=== PATIENT | female | born 1930 | race Two or more races ===

== ENCOUNTER → 2017-01-26 | Outpatient (CLI) | payer OTHER, MEDICARE | LOC: BMCIMAGING 16:18 | PROVIDERS: ATTEND Internal Medicine | DX: R05 Cough (principal); R50.9 Fever, unspecified ==

== ENCOUNTER → 2017-03-10 | Outpatient (CLI) | payer OTHER, MEDICARE | LOC: BMCIMAGING 09:00 | PROVIDERS: ATTEND Internal Medicine | DX: R05 Cough (principal) ==

== ENCOUNTER → 2017-06-22 | Outpatient (CLI) | payer OTHER, MEDICARE | LOC: BMCIMAGING 10:18 | PROVIDERS: ATTEND Internal Medicine | DX: R92.8 Other abnormal and inconclusive findings on diagnostic imaging of breast (principal); Z96.9 Presence of functional implant, unspecified; Z90.13 Acquired absence of bilateral breasts and nipples | CPT/HCPCS: 76641; G0204 ==

== ENCOUNTER 2017-09-17 07:25 | Observation (INO) | payer OTHER, MEDICARE ==
[2017-09-17] MEDS ORDERED: NS 1,000 ML IV ONE (08:17)
--- NOTE | 2017-09-17 08:21 | EDPHY ---
H & P Stated Complaint: dizziness and vometing Time Seen by Provider: 09/17/17 07:39 - Personal History Current Tetanus/Diphtheria Vaccine: Yes Current Tetanus Diphtheria and Acellular Pertussis (TDAP): Yes - Medical/Surgical History Hx Asthma: No Hx Chronic Respiratory Disease: No Hx Diabetes: No Hx Cardiac Disease: No Hx Renal Disease: Yes Hx Cirrhosis: No Hx Alcoholism: No Hx HIV/AIDS: No Hx Splenectomy or Spleen Trauma: No Other PMH: low blood pressure, anxiety, hypothyroidism, LTHA, anemia, insomnia, GI Bleed, breast ca, double mastectomy, anemia, GERD, memory loss, imcomtinenz - Social History Smoking Status: Never smoked Constitutional: Initial Vital Signs Temperature (C) 36.4 C 09/17/17 07:25 Heart Rate 65 09/17/17 07:25 Respiratory Rate 16 09/17/17 07:25 Blood Pressure 158/80 H 09/17/17 07:25 O2 Sat (%) 95 09/17/17 07:25 O2 Delivery Mode Room Air Allergies/Adverse Reactions: codeine Allergy (Verified 08/21/15 13:53) morphine Allergy (Verified 08/21/15 13:53) Home Medications: Medication Instructions Recorded Herbals/Supplements -Info Only 1 ea PO DAILY 08/07/15 Lansoprazole [Prevacid] 30 mg PO Q12 PRN 08/07/15 Levothyroxine [Synthroid] 25 mcg PO DAILY06 08/07/15 Multivitamins [Tab-A-Lynne] 1 each PO DAILY 08/07/15 Ferrous Sulfate 09/17/17 Medical Decision Making - Diagnostics Imaging Results: Imaging Impressions Abdomen CT 09/17/17 08:18 Impression: 1. Right renal obstruction secondary to 2 adjacent proximal ureteral stones. The right urothelium is thickened, consistent with either chronic inflammation or infection. The right kidney is moderately atrophic. 2. Left pelvic Paget's disease. 3. Large hiatal hernia. 4. Colonic diverticulosis. Results called and discussed with Kailash Almonte MD, at 09/17/2017 9:24 General information for patients regarding this examination can be found at [email or web address]. If you have questions or comments about this report, please contact me at [phone] (hospital) or [phone] (cell). ED Course/Re-evaluation: CHIEF COMPLAINT: Dizziness and vomiting HISTORY OF PRESENT ILLNESS: 87-year-old female who lives in her own apartment. She spoke to her son this morning after she had severe dizziness and was afraid to get up out of the chair. She also vomited. Although she has short- term memory loss she believes the dizziness came 1st and then she vomited. She denies any systemic illness like fevers or chills. She denies any diarrhea. She denies any black tarry stools. She did say that the vomit was a very small amount of black liquid she did drink black coffee and had her vitamins including iron tablet this morning. Denies any other symptoms REVIEW OF SYSTEMS: A 10 point review of systems was performed and is negative with the exception of the elements mentioned in the history of present illness. PHYSICAL EXAM: HR, BP, O2 Sat, RR. Temp noted General Appearance: Alert, well hydrated, appropriate, and non-toxic appearing. Head: Atraumatic without scalp tenderness or obvious injury Eyes: Pupils equal, round, reactive to light and accommodation, EOMI, no trauma , no injection. Ears: Clear bilaterally, no perforation, normal landmarks Nose: Atraumatic, no rhinorrhea, clear. Throat: There is no erythema or exudates, no lesions, normal tonsils, mucus membranes moist. Neck: Supple, 2+ carotid upstroke, nontender, no lymphadenopathy. Respiratory: No retractions, no distress, no wheezes, and no accessory muscle use. Lungs are clear to auscultation bilaterally. Cardiovascular: Regular rate and rhythm, no murmurs, rubs, or gallops. Bilateral carotid, radial, dorsalis pedis, and posterior tibial pulses intact. Good capillary refill all extremities. Gastrointestinal: Abdomen is soft, tenderness in the epigastric area, non- distended, no masses, no rebound, no guarding, no peritoneal signs. Musculoskeletal: Normal active ROM of all extremities, atraumatic. Neurological: Alert, appropriate, and interactive. The patient has normal DTRs and non-focal cranial nerves, motor, sensory, and cerebellar exam. Skin: No rashes, good turgor, no nodules on palpation. Past medical history: Noncontributory no prior history of obstruction or gastrointestinal bleeding Past surgical history: Noncontributory Family history: Noncontributory Social history: , lives at home alone, does not abuse tobacco drugs or alcohol DIAGNOSTICS/PROCEDURES/CRITICAL CARE TIME: Study: CT of the abdomen and pelvis with IV contrast Indication: abdominal pain with nausea and vomiting Results: CT scan of the abdomen and pelvis was obtained. The results of the study are significant right pyelonephritis due to to 8 mm adjacent proximal kidney stones. The study was read by the radiologist, Dr. Chris Willson. I viewed the images myself on the PACS system. DIFFERENTIAL DIAGNOSIS: The differential diagnosis for the patient's abdominal pain included but was not limited to ovarian cyst, pelvic inflammatory disease, ovarian torsion, urinary tract infection, ectopic , cholecystitis, and appendicitis. MEDICAL DECISION MAKING: This patient is in no distress. She has excellent vital signs. She has a fairly tender abdominal exam mostly in the epigastric area when I palpate. She states she feels almost completely better and is no longer dizzy and is no longer nauseated. I am somewhat concerned about her history since she has significant short-term memory loss and her son who is in the room has to help her. We will perform laboratory studies and CT scan. This patient has 2 large proximal kidney stones obstructing right kidney which is most likely the cause for her pain. Her renal function is normal she has not have a white blood cell count and she is not febrile. Urinalysis is pending. The urinalysis shows significant red cells and significant white cells with leukocyte esterase and nitrates. This patient has an obstructive uropathy secondary to to proximal kidney stones and a pyelonephritis. I have given her 1 g of ceftriaxone. She is not septic. I have paged hospitalist and Neurology. Most likely this patient will need either a stent or nephrostomy tube and admission. I spoke with Urology. They are in agreement that the nephrostomy tube is indicated in this patient. We have called interventional Radiology to get that tube placed and I am admitting the patient to the hospitalist. - Data Points Laboratory Results: Laboratory Results 09/17/17 07:30 09/17/17 07:30 09/17/17 09/17/17 09/17/17 09:07 07:30 07:30 WBC 4.80 10^3/uL 10^3/uL (3.80-9.50) RBC 4.49 10^6/uL 10^6/uL (4.18-5.33) Hgb 14.2 g/dL g/dL (12.6-16.3) Hct 42.6 % % (38.0-47.0) MCV 94.9 fL fL (81.5-99.8) MCH 31.6 pg pg (27.9-34.1) MCHC 33.3 g/dL g/dL (32.4-36.7) RDW 13.8 % % (11.5-15.2) Plt Count 193 10^3/uL 10^3/uL (150-400) MPV 11.0 fL fL (8.7-11.7) Neut % (Auto) 73.3 % % (39.3-74.2) Lymph % (Auto) 14.4 % L % (15.0-45.0) [place] % (Auto) 7.3 % % (4.5-13.0) Eos % (Auto) 3.8 % % (0.6-7.6) Baso % (Auto) 0.8 % % (0.3-1.7) Nucleat RBC Rel Count 0.0 % % (0.0-0.2) Absolute Neuts (auto) 3.52 10^3/uL 10^3/uL (1.70-6.50) Absolute Lymphs (auto) 0.69 10^3/uL L 10^3/uL (1.00-3.00) Absolute Monos (auto) 0.35 10^3/uL 10^3/uL (0.30-0.80) Absolute Eos (auto) 0.18 10^3/uL 10^3/uL (0.03-0.40) Absolute Basos (auto) 0.04 10^3/uL 10^3/uL (0.02-0.10) Absolute Nucleated RBC 0.00 10^3/uL 10^3/uL (0-0.01) Immature Gran % 0.4 % % (0.0-1.1) Immature Gran # 0.02 10^3/uL 10^3/uL (0.00-0.10) Sodium 139 mEq/L mEq/L (134-144) Potassium 4.3 mEq/L mEq/L (3.5-5.2) Chloride 102 mEq/L mEq/L (97-110) Carbon Dioxide 26 mEq/l mEq/l (22-31) Anion Gap 11 mEq/L mEq/L (8-16) BUN 24 mg/dL H mg/dL (7-23) Creatinine 0.9 mg/dL mg/dL (0.6-1.0) Estimated GFR 59 Glucose 112 mg/dL H mg/dL (70-100) Calcium 9.4 mg/dL mg/dL (8.5-10.4) Total Bilirubin 0.4 mg/dL mg/dL (0.1-1.4) Conjugated Bilirubin 0.1 mg/dL mg/dL (0.0-0.5) Unconjugated Bilirubin 0.3 mg/dL mg/dL (0.0-1.1) AST 20 IU/L IU/L (14-46) ALT 33 IU/L IU/L (9-52) Alkaline Phosphatase 113 IU/L IU/L (38-126) Total Protein 6.5 g/dL g/dL (6.3-8.2) Albumin 4.0 g/dL g/dL (3.5-5.0) Lipase 97 IU/L IU/L (23-300) Urine Color YELLOW Urine Appearance MODERATELY TURBID Urine pH 5.0 (5.0-7.5) Ur Specific [place] 1.027 (1.002-1.030) Urine Protein NEGATIVE (NEGATIVE) Urine Ketones NEGATIVE (NEGATIVE) Urine Blood 2+ H (NEGATIVE) Urine Nitrate POSITIVE H (NEGATIVE) Urine Bilirubin NEGATIVE (NEGATIVE) Urine Urobilinogen NEGATIVE EU EU (0.2-1.0) Ur Leukocyte Esterase 3+ H (NEGATIVE) Urine RBC 50-182 /hpf H /hpf (0-3) Urine WBC 50-182 /hpf H /hpf (0-3) Ur Epithelial Cells TRACE /lpf /lpf (NONE-1+) Urine Bacteria 4+ /hpf H /hpf (NONE SEEN) Urine Mucus TRACE /lpf /lpf (NONE-1+) Urine Glucose NEGATIVE (NEGATIVE) Medications Given: Ceftriaxone Sodium/Dextrose (Rocephin 1 Gm (Premix)) 50 mls @ 100 mls/hr IV EDNOW ONE PRN Reason: Protocol Stop: 09/17/17 10:04 Last Admin: 09/17/17 09:41 Dose: 50 mls Discontinued Medications Sodium Chloride (Ns) 1,000 mls @ 0 mls/hr IV EDNOW ONE; Wide Open PRN Reason: Protocol Stop: 09/17/17 08:18 Last Admin: 09/17/17 08:34 Dose: 1,000 mls Departure - Departure Disposition: [facility] Inpatient Acute Clinical Impression: Acute pyelonephritis, Renal colic on right side, Obstructive uropathy Condition: Fair Referrals: Chaytio Torres MD [Primary Care Provider] - As per Instructions
[2017-09-17 08:22] LABS: % IMMATURE GRANULYOCYTES 0.4 % (0.0-1.1); ABSOLUTE IMMATURE GRANULOCYTES 0.02 10^3/uL (0.00-0.10); ADD DIFF? NO; ADD MORPH? NO; ADD SCAN? NO; ATYPICAL LYMPHOCYTE FLAG 0 (0-99); FRAGMENT RBC FLAG 0 (0-99); HEMATOCRIT 42.6 % (38.0-47.0); HEMOGLOBIN 14.2 g/dL (12.6-16.3); LEFT SHIFT FLG 0 (0-99); LIPEMIA HEMOLYSIS FLAG 80 (0-99); MEAN CELL HEMOGLOBIN 31.6 pg (27.9-34.1); MEAN CELL HEMOGLOBIN CONCENTR. 33.3 g/dL (32.4-36.7); MEAN CELL VOLUME 94.9 fL (81.5-99.8); PLATELET CLUMPS FLAG 10 (0-99); PLATELET COUNT 193 10^3/uL (150-400); RED BLOOD CELL COUNT 4.49 10^6/uL (4.18-5.33); RED CELL DISTRIBUTION WIDTH 13.8 % (11.5-15.2)
[2017-09-17] MEDS ORDERED: IOPAMIDOL (ISOVUE-300) 100 ML BTL ONE (08:26)
[2017-09-17 08:30] LABS: ALANINE AMINOTRANSFERASE 33 IU/L (9-52); ALKALINE PHOSPHATASE 113 IU/L (38-126); ASPARTATE AMINOTRANSFERASE 20 IU/L (14-46); BILIRUBIN,TOTAL 0.4 mg/dL (0.1-1.4); BILIRUBIN-CONJUGATED 0.1 mg/dL (0.0-0.5); BILIRUBIN-UNCONJUGATED 0.3 mg/dL (0.0-1.1); CALCIUM 9.4 mg/dL (8.5-10.4); CARBON DIOXIDE 26 mEq/l (22-31); CHLORIDE 102 mEq/L (97-110); CREATININE 0.9 mg/dL (0.6-1.0); GLOMERULAR FILTRATION RATE 59; GLUCOSE 112 mg/dL (70-100); SODIUM 139 mEq/L (134-144); TOTAL PROTEIN 6.5 g/dL (6.3-8.2)
[2017-09-17 08:35] LABS: ANION GAP 11 mEq/L (8-16); POTASSIUM 4.3 mEq/L (3.5-5.2)
[2017-09-17 09:31] LABS: COLOR YELLOW; LEUKOCYTE ESTERASE,URINE 3+ (NEGATIVE); NITRITE,URINE POSITIVE (NEGATIVE)
[2017-09-17 09:34] LABS: BACTERIA 4+ /hpf (NONE SEEN); MUCUS TRACE /lpf (NONE-1+); RBC,URINE 50-182 /hpf (0-3); WBC,URINE 50-182 /hpf (0-3)
--- NOTE | 2017-09-17 10:52 | ASMTCMCOM ---
CM Note CM Note Notes: Patient admitted for acute pyelonephritis, ureter stones and possible infection. Patient only has her right kidney and she will need a nephrostomy tube, to be placed by IR. Patient lives alone in independent living at [facility]. Patient's son, Tye, is at bedside and lives locally. Patient has short term memory loss, not sure if officially diagnosed with dementia or not. Exact DC needs unknown at this time. Per chart review, patient had been to [facility] in 2014. Patient's PCP is Dr. Chayito Torres. CM to follow. Date Signed: 09/17/2017 10:51 AM Electronically Signed By:Liss Luther RN
--- NOTE | 2017-09-17 10:53 | ASMTCASEMG ---
Living Arrangements What is your living Answers: Alone arrangement? Who do you live with? Type Of Residence What kind of residence do Answers: Chcf you live in? Type of Residence Facility Name Notes: [facility] Case Management Evaluation Functional: ADL / IADL Answers: Cognitive Deficiency Performance Deficits Due to: Other Notes: Short term memory loss Date Signed: 09/17/2017 10:53 AM Electronically Signed By:Liss Luther RN
[2017-09-17] MEDS ORDERED: ONDANSETRON 4 MG/2 ML VIAL IVP PRN (11:23)
[2017-09-17] MEDS ORDERED: ONDANSETRON DISINTEGRATING 4 MG TAB PO PRN (11:23)
[2017-09-17] MEDS ORDERED: ACETAMINOPHEN 325 MG TAB PO PRN (11:23)
[2017-09-17] MEDS ORDERED: PROTAMINE SULFATE 50 MG/5 ML VIAL IVP PRN (11:39)
[2017-09-17] MEDS ORDERED: GLUCAGON HCL 1 MG VIAL IVP PRN (11:39)
[2017-09-17] MEDS ORDERED: NALOXONE HCL 0.4 MG/ML INJ IVP PRN (11:39)
[2017-09-17] MEDS ORDERED: HEPARIN 10,000 UNIT/10 ML MDV IVP PRN (11:39)
[2017-09-17] MEDS ORDERED: MEPERIDINE 25 MG/ML SYR IVP PRN (11:39)
[2017-09-17] MEDS ORDERED: ALTEPLASE 2 MG VIAL IVP PRN (11:39)
[2017-09-17] MEDS ORDERED: MIDAZOLAM 2 MG/2 ML VIAL IVP PRN (11:39)
[2017-09-17] MEDS ORDERED: FLUMAZENIL 0.5 MG/5 ML MDV IVP PRN (11:39)
[2017-09-17] MEDS ORDERED: fentaNYL 100 MCG/2 ML INJ IVP PRN (11:39)
[2017-09-17] MEDS ORDERED: NS 1,000 ML IV SCH (11:45)
[2017-09-17] MEDS ORDERED: DOXEPIN HCL 10 MG CAP PO PRN (12:10)
--- NOTE | 2017-09-17 14:11 | GHP ---
[f rep st] HISTORY AND PHYSICAL DATE OF ADMISSION: 09/17/2017 CHIEF COMPLAINT: Vomiting with dizziness and lightheadedness. HISTORY OF PRESENT ILLNESS: The patient is an 87-year-old female, who lives at the [facility]. She presented to the emergency room this morning after complaints of vomiting with meron e dizziness. She denies any other complaints. She said that her vomiting was a small amount of nettie k liquid that looked like coffee grounds. She denies any chest pain, shortness of breath or dyspnea. She denies any changes in vision. She denies any changes in bowel movements, however, has difficul ty recalling this information. She denies any current pain or other specific complaints. REVIEW OF SYSTEMS: A comprehensive 10-point Review of Systems is negative other than noted in the HP I, to the best of my ability to obtain information from the patient. PAST MEDICAL HISTORY: 1. Gastrointestinal bleed. 2. Breast cancer. 3. One functioning kidney secondary to significant kidney stones. 4. Hypothyroidism. PAST SURGICAL HISTORY: Bilateral mastectomy. MEDICATIONS: 1. Prevacid. 2. Multivitamin. 3. Synthroid. 4. Doxepin. ALLERGIES: Codeine and morphine. SOCIAL HISTORY: The patient resides at the [facility] in the [facility]. She was previously [facility]. Her son resides in the area. She does not smoke tobacco. She does drink 1 to 2 glasses of wine daily. FAMILY HISTORY: Positive for cancer on her mother's side and heart disease on her father's side. PHYSICAL EXAM: GENERAL: The patient is alert, oriented to person, place. VITAL SIGNS: Afebrile at 36.3, pulse is 68, respiratory rate is 18, blood pressure is 168/78, she is saturating 97% on room a ir. GENERAL: She is a very pleasant, elderly woman in no acute distress. HEENT: Pupils are equal, round, reactive to light. Atraumatic. Mucosal membranes are moist. NECK: Supple with no adenopat hy noted. CARDIOVASCULAR: Regular rate and rhythm. Systolic murmur identified. RESPIRATORY: Lung s are clear to auscultation bilaterally. No rhonchi or wheezes noted. GASTROINTESTINAL/ABDOMEN: Shay wel sounds are positive. Soft, nontender. There is no guarding or rigidity appreciated. EXTREMITIE S: Within normal limits. There is no clubbing or cyanosis noted. She does have venous stasis angelo es bilaterally. MUSCULOSKELETAL: There is no joint or muscle tenderness identified. SKIN: Without rashes or lesions. LABORATORY EVALUATION: CBC within normal limits as well as her metabolic panel. Urine is notable fo r likely infectious process. RADIOLOGICAL STUDIES: CT of the abdomen notes right renal obstruction secondary to ureteral stones a s well as thickening representing a chronic inflammation or chronic infection and moderately atrophic kidney. ASSESSMENT AND PLAN: This is an 87-year-old female who presents with complaints of dark emesis, expe riencing lightheadedness and weakness. This case was discussed with Dr. Kailash Almonte as well as Dr. Won Gray of Urology and Dr. Kerrie Robert of Interventional Radiology. 1. Right kidney abnormality with hydronephrosis. It appears that this is chronic in nature per the reading of the Radiologist as well as evaluation from Urology and Interventional Radiology. No inter vention is warranted at this time. If the patient's symptoms were to change, we could consider placi ng a nephrostomy tube with aggressive treatment for her kidney stones. I have reviewed this plan wit h the patient's son as well as the patient. They are both in agreement with this plan. 2. Pyuria, will treat the patient for urinary tract infection. She did receive a dose of Rocephin i n the emergency room. Urine culture has been ordered, will follow her culture with appropriate treat ment. 3. Emesis. The patient has had no further bouts of this since this morning. We will continue to wa tch her. She is not presenting with anemia or other complaints. She denies any current nausea or ab dominal pain. She will be placed on a regular diet with further intervention identified if needed. 4. History of hypothyroidism, will continue her previously prescribed replacement. 5. Deep venous thrombosis prophylaxis. The patient has been placed on Lovenox. CODE STATUS: 1. The patient is a full code. Her son is at the bedside to assist with this decision-making. 2. The patient will be admitted to observation status. This will be adjusted based on her hospital course. /[id number]/MODL
[2017-09-18 00:41] VITALS: RESP 16
[2017-09-18 07:19] VITALS: BP 139/72; PULSE 67; TEMP 98.1; O2SAT 94
[2017-09-18 08:50] LABS: % IMMATURE GRANULYOCYTES 0.7 % (0.0-1.1); ABSOLUTE IMMATURE GRANULOCYTES 0.03 10^3/uL (0.00-0.10); ADD DIFF? NO; ADD MORPH? NO; ADD SCAN? NO; ATYPICAL LYMPHOCYTE FLAG 0 (0-99); FRAGMENT RBC FLAG 0 (0-99); HEMATOCRIT 41.9 % (38.0-47.0); HEMOGLOBIN 13.9 g/dL (12.6-16.3); LEFT SHIFT FLG 0 (0-99); LIPEMIA HEMOLYSIS FLAG 80 (0-99); MEAN CELL HEMOGLOBIN 31.4 pg (27.9-34.1); MEAN CELL HEMOGLOBIN CONCENTR. 33.2 g/dL (32.4-36.7); MEAN CELL VOLUME 94.6 fL (81.5-99.8); MEAN PLATELET VOLUME 10.5 fL (8.7-11.7); PLATELET CLUMPS FLAG 0 (0-99); PLATELET COUNT 176 10^3/uL (150-400); RED BLOOD CELL COUNT 4.43 10^6/uL (4.18-5.33); RED CELL DISTRIBUTION WIDTH 13.7 % (11.5-15.2)
[2017-09-18] MEDS ORDERED: PANTOPRAZOLE SODIUM 40 MG TAB PO SCH (09:00)
[2017-09-18] MEDS ORDERED: LANSOPRAZOLE 30 MG PO SCH (09:00)
[2017-09-18] MEDS ORDERED: ENOXAPARIN 30 MG/0.3 ML SYR SC SCH (09:00)
[2017-09-18] MEDS ORDERED: LEVOTHYROXINE 88 MCG TAB PO SCH (09:00)
[2017-09-18] MEDS ORDERED: MULTIVITAMINS 1 EACH TAB PO SCH (09:00)
[2017-09-18 09:17] LABS: ANION GAP 7 mEq/L (8-16); CALCIUM 9.2 mg/dL (8.5-10.4); CARBON DIOXIDE 30 mEq/l (22-31); CHLORIDE 102 mEq/L (97-110); CREATININE 0.8 mg/dL (0.6-1.0); GLOMERULAR FILTRATION RATE > 60; GLUCOSE 92 mg/dL (70-100); POTASSIUM 3.9 mEq/L (3.5-5.2); SODIUM 139 mEq/L (134-144)
--- NOTE | 2017-09-18 10:07 | PDDCSUM ---
Discharge Summary Discharge Summary: This is a 87 yo female with hx of non functioning right kidney who was admitted for right abd/right side pain, N/V with the possibility of vomiting coffee ground emesis. Labs were normal including Hgb and Cr. She was started on Rocephin in the E.D and this was continued. CT showed stones in the right kidney , but also showed chronic scarring. Initially the plan was to place a nephrostomy tube but upon further evaluation by IR, Urology, and the admitting hospitalist, a decision not perform nephrostomy was made as the CT findings were likely chronic and she did not have any clinical e/o of renal etiology for her sx's. No Leukocytosis or fever. UA was c/w likely UTI, although she does not have dysuria or increased frequency Overnight she did well. NO further N/N, her right sided abd/side pain have resolved. She is asking of discharge. She has already received 2 doses of Rocephin. Given improvement of her symptoms , I have chosen to complete a 7 day course of abx with Omnicef. she will f/u with her PCP next week #Pyuria vs complicated UTI with atypical presentation #Chronic right renal abnormalities and non functioning kidney #N/V, resolved #?coffee ground emesis, Hgb stable and unchanged overnight. NO abd pain. I did not start a PPI Exam: VSS NAD AAOX3 RRR CTA B S/NT/ND NO CVA TENDERNESS NO LE EDEMA MEDS: SEE MED REC TOTAL TIME SPENT ON DISCHARGE IS 35 MINUTES
--- NOTE | 2017-09-18 14:46 | ASDISCHSUM ---
Discharge Information Plan Status:Home with No Needs Medically Cleared to Leave: Discharge Date:09/18/2017 11:48 AM CM D/C Disposition:Home, Routine, Self-Care ADT D/C Disposition:Home, Routine, Self-Care Projected Discharge Date:09/18/2017 11:48 AM Transportation at D/C:Family Discharge Delay Reason: Follow-Up Date:09/18/2017 11:48 AM Discharge Slot: Final Diagnosis: Placement Information Patient Contact Information Contact Name:CHAITANYA Relationship:Son Address:[address] City:[place] Alternate Phone: [facility]/Zip Code:[place] [address] Email: Financial Information Financial Class: Primary Plan Desc:MEDICARE OUTPATIENT Primary Plan Number:[id number] Secondary Plan Desc:[employer]/MDR SUPPLEMENT Secondary Plan Number:[id number] Assessment Information LACE LACE Acuity / Level of Care Answers: Was the patient admitted to hospital via the emergency department? Yes: Comorbidities - select Answers: Mild liver or renal all that apply disease Dementia Emergency dept visits in Answers: 1 last 6 months Score: 9 Date Signed: 09/17/2017 10:46 AM Electronically Signed By:Liss Luther RN [facility] CM Progress Note CM Note CM Note Notes: Patient admitted for acute pyelonephritis, ureter stones and possible infection. Patient only has her right kidney and she will need a nephrostomy tube, to be placed by IR. Patient lives alone in independent living at [facility]. Patient's son, Tye, is at bedside and lives locally. Patient has short term memory loss, not sure if officially diagnosed with dementia or not. Exact DC needs unknown at this time. Per chart review, patient had been to [facility] in 2014. Patient's PCP is Dr. Chayito Torres. CM to follow. Date Signed: 09/17/2017 10:51 AM Electronically Signed By:Liss Luther RN [facility] Initial CM Assessment Living Arrangements What is your living Answers: Alone arrangement? Who do you live with? Type Of Residence What kind of residence do Answers: Snf you live in? Type of Residence Facility Name Notes: [facility] Case Management Evaluation Functional: ADL / IADL Answers: Cognitive Deficiency Performance Deficits Due to: Other Notes: Short term memory loss Date Signed: 09/17/2017 10:53 AM Electronically Signed By:Liss Luther RN Case Management Discharge Plan Note Case Management Discharge Discharge Order Complete? Answers: Yes Patient to Obtain Answers: via Family Medications Transportation Arranged Answers: Family/Friends Discharge Comments Notes: PT recommending home d/c. Pt d/c'ed to [facility]. Date Signed: 09/18/2017 02:45 PM Electronically Signed By:Liss Varghese LCSW Intervention Information
[2017-09-19] MEDS ORDERED: LEVOTHYROXINE 75 MCG TAB PO SCH (09:00)
== END 2017-09-18 11:48 | disposition home or self-care (01) ==
LOC: EDUNIT# → F1N 11:07
PROVIDERS: ADMIT Hospitalist; ATTEND Hospitalist
DX: N39.0 Urinary tract infection, site not specified (principal); N28.9 Disorder of kidney and ureter, unspecified; E03.9 Hypothyroidism, unspecified; K21.9 Gastro-esophageal reflux disease without esophagitis; Z90.13 Acquired absence of bilateral breasts and nipples; Z85.3 Personal history of malignant neoplasm of breast
CPT/HCPCS: 74177; 96361; 96365; 97161; 99285; G0378; G8978; G8979; G8981; J0696; J1650; Q9967

== ENCOUNTER → 2017-09-29 | Outpatient (CLI) | payer OTHER, MEDICARE | LOC: BMCIMAGING 13:12 | PROVIDERS: ATTEND Internal Medicine | DX: K44.9 Diaphragmatic hernia without obstruction or gangrene (principal); J98.4 Other disorders of lung ==